=== PATIENT | female | born 1935 | race Caucasian/White ===

== ENCOUNTER 2016-10-23 13:19 | Inpatient (IN) | payer MEDICARE, OTHER ==
[~2016-10-23] VITALS: Ht 166.4 cm; Wt 108.2 kg
[~2016-10-23 13:19] MED LIST: ALBUTEROL0.63 MG/3 INH; ASPIRIN EC81 MG PO; CARDIZEM CD180 MG PO; COZAAR25 MG PO; ELIQUIS2.5 MG PO; FERROUS SULFAT325 MG PO; FLAGYL500 MG PO; HYDRALAZINE HC100 MG PO; K-DUR TAB 20 M20 MEQ PO; LASIX 40 MG TAB40 MG PO; LIPITOR TAB 2020 MG PO; LOPRESSOR50 MG PO; LOSARTAN-HCTZ1 EACH PO; PREVACID30 MG PO; PROVENTIL HFA 61 INH INH; ZOFRAN4 MG PO
[2016-10-23 16:06] LABS: HEMOGLOBIN 11.1 gm/dl (12.3-15.3); RED BLOOD COUNT 4.39 M/UL (4.00-5.10); WHITE BLOOD COUNT 4.9 K/UL (4.5-11.0)
[2016-10-24 04:41] LABS: HEMOGLOBIN 10.5 gm/dl (12.3-15.3); RED BLOOD COUNT 4.28 M/UL (4.00-5.10)
[2016-10-24 04:44] LABS: WHITE BLOOD COUNT 2.3 K/UL (4.5-11.0)
[2016-10-24] MEDS ORDERED: SINGULAIR10 MG PO (11:12)
[2016-10-25 04:14] LABS: HEMOGLOBIN 10.9 gm/dl (12.3-15.3); RED BLOOD COUNT 4.39 M/UL (4.00-5.10)
[2016-10-25 04:18] LABS: WHITE BLOOD COUNT 5.7 K/UL (4.5-11.0)
[2016-10-27 05:27] LABS: HEMOGLOBIN 11.1 gm/dl (12.3-15.3)
[2016-11-02] MEDS ORDERED: BUMEX 1MG TABLET1 MG PO (16:57)
[2016-11-02] MEDS ORDERED: LANOXIN TAB0.125 MG PO (16:58)
[2016-11-02] MEDS ORDERED: ALDACTONE50 MG PO (16:59)
[2016-11-02] MEDS ORDERED: PROVENTIL HFA 61 INH INH (17:00)
[2016-11-02] MEDS ORDERED: ATROVENT INH S2.5 ML INH (17:24)
== END 2016-11-02 17:44 | disposition home or self-care (01) | DRG 292 ==
LOC: ER1 13:19 → MED SURG 4 18:07 → ZEROF 18:07 → MED SURG 4 10-24 14:10
PROVIDERS: Emergency Medicine; Hospitalist; Internal Medicine; Physician Assistant; ADMIT Internal Medicine
DX: I11.0 Hypertensive heart disease with heart failure (principal); J44.1 Chronic obstructive pulmonary disease with (acute) exacerbation; J98.11 Atelectasis; E87.2 Acidosis; Z68.41 Body mass index [BMI] 40.0-44.9, adult; I50.23 Acute on chronic systolic (congestive) heart failure; I42.0 Dilated cardiomyopathy; I48.2 Chronic atrial fibrillation; R09.02 Hypoxemia; I44.7 Left bundle-branch block, unspecified; D50.9 Iron deficiency anemia, unspecified; I27.2 Other secondary pulmonary hypertension; I08.3 Combined rheumatic disorders of mitral, aortic and tricuspid valves; E78.5 Hyperlipidemia, unspecified; E05.90 Thyrotoxicosis, unspecified without thyrotoxic crisis or storm; E66.9 Obesity, unspecified; G47.33 Obstructive sleep apnea (adult) (pediatric); K21.9 Gastro-esophageal reflux disease without esophagitis; J06.9 Acute upper respiratory infection, unspecified; Z91.11 Patient's noncompliance with dietary regimen; Z91.19 Patient's noncompliance with other medical treatment and regimen; Z79.01 Long term (current) use of anticoagulants; Z79.82 Long term (current) use of aspirin; Z79.899 Other long term (current) drug therapy; Z82.49 Family history of ischemic heart disease and other diseases of the circulatory system
CPT/HCPCS: ECHO; 36415; 36600; 51702; 71010; 78472; 80048; 80053; 81001; 82550; 82553; 82803; 82962; 83605; 83735; 83874; 83880; 84439; 84443; 84484; 85014; 85018; 85025; 87040; 87086; 93005; 93306; 94640; 94664; 96365; 96366; 96375; 96376; 99285; A9560; J0456; J0696; J1940; J2930; J7030; J7050

== ENCOUNTER → 2017-01-02 | Outpatient (CLI) | payer MEDICARE, OTHER ==
[~2017-01-02] MED LIST changes: +ALDACTONE50 MG PO; +ATROVENT INH S2.5 ML INH; +BUMEX 1MG TABLET1 MG PO; +LANOXIN TAB0.125 MG PO; +SINGULAIR10 MG PO
== END ==
LOC: HEART 5 13:29
DX: I48.91 Unspecified atrial fibrillation (principal); I50.9 Heart failure, unspecified
CPT/HCPCS: 93306

== ENCOUNTER 2020-11-16 19:21 | Emergency (ER) | payer MEDICARE, OTHER ==
[~2020-11-16 19:21] MED LIST changes: +ANUSOL HC SUPP1 SUPP PR; +BUMETANIDE1 MG PO; +CLARITIN 10MG T10 MG PO; +CYANOCOBAL1000 MCG/1 INJ; +KEFLEX CAP 500500 MG PO; +LANOXIN125 MCG PO; +LANSOPRAZOLE30 MG PO; +OMNICEF 300 MG300 MG PO; +PREVACID 30 MG30 MG PO; +TOPROL XL100 MG PO
[2020-11-16 21:11] LABS: HEMOGLOBIN 13.2 gm/dl (12.3-15.3); RED BLOOD COUNT 4.66 M/UL (4.00-5.10); WHITE BLOOD COUNT 8.2 K/UL (4.5-11.0)
[2020-11-16] MEDS ORDERED: OMNICEF 300 MG300 MG PO (22:09)
== END 2020-11-16 22:48 | disposition home or self-care (01) ==
LOC: ER1 19:21
PROVIDERS: Physician Assistant
DX: K64.4 Residual hemorrhoidal skin tags (principal); N39.0 Urinary tract infection, site not specified; I11.0 Hypertensive heart disease with heart failure; I50.20 Unspecified systolic (congestive) heart failure; E11.9 Type 2 diabetes mellitus without complications; I48.91 Unspecified atrial fibrillation; Z90.49 Acquired absence of other specified parts of digestive tract; Z79.4 Long term (current) use of insulin; Z79.899 Other long term (current) drug therapy
CPT/HCPCS: 51701; 80048; 81001; 85025; 87077; 87086; 87186; 99283

== ENCOUNTER 2020-12-22 09:38 | Inpatient (IN) | payer MEDICARE, OTHER ==
[~2020-12-22] VITALS: Ht 157.5 cm; Wt 89.4 kg
[2020-12-22 12:08] LABS: RED BLOOD COUNT 4.51 M/UL (4.00-5.10); WHITE BLOOD COUNT 13.1 K/UL (4.5-11.0)
[2020-12-22] MEDS ORDERED: GLIMEPIRIDE1 MG PO (14:45)
[2020-12-22] MEDS ORDERED: ZAROXOLYN/DIULO5 MG PO (14:45)
[2020-12-22] MEDS ORDERED: TRADJENTA5 MG PO (14:45)
[2020-12-22] MEDS ORDERED: LANTUS100 UNIT/1 SQ (16:58)
[2020-12-22] MEDS ORDERED: PROTONIX40 MG PO (16:58)
[2020-12-22] MEDS ORDERED: HYDROXYZINE HCL25 MG PO (16:58)
[2020-12-22] MEDS ORDERED: TYLENOL EXTRA500 MG PO (16:59)
[2020-12-22] MEDS ORDERED: VITAMIN D250 MCG PO (16:59)
[2020-12-22] MEDS ORDERED: ARTIFICIAL TEAR15 M6 OP (16:59)
[2020-12-22] MEDS ORDERED: VITAMIN B-121000 MCG SC (19:28)
[2020-12-23 01:09] LABS: HEMOGLOBIN 11.3 gm/dl (12.3-15.3); RED BLOOD COUNT 3.97 M/UL (4.00-5.10); WHITE BLOOD COUNT 9.6 K/UL (4.5-11.0)
--- NOTE | 2020-12-24 04:34 | NUR ---
Patient's HR increased to 180's while ambulating to bathroom. MD notified. Med orders obtained to give, bedside commode placed by bed at this time. Will continue to monitor patient.
[2020-12-24 04:47] LABS: HEMOGLOBIN 10.9 gm/dl (12.3-15.3); RED BLOOD COUNT 3.81 M/UL (4.00-5.10); WHITE BLOOD COUNT 7.8 K/UL (4.5-11.0)
[2020-12-25 05:40] LABS: HEMOGLOBIN 11.5 gm/dl (12.3-15.3); RED BLOOD COUNT 4.04 M/UL (4.00-5.10)
[2020-12-25] MEDS ORDERED: OMNICEF 300 MG300 MG PO (09:33)
== END 2020-12-25 12:06 | disposition home or self-care (01) | DRG 683 ==
LOC: ER1 09:38 → CDU 13:50 → MED SURG 4 13:50
PROVIDERS: Emergency Medicine; Physician Assistant; ADMIT Family Medicine
DX: N17.9 Acute kidney failure, unspecified (principal); N30.00 Acute cystitis without hematuria; E87.2 Acidosis; E87.1 Hypo-osmolality and hyponatremia; I13.0 Hypertensive heart and chronic kidney disease with heart failure and stage 1 through stage 4 chronic kidney disease, or unspecified chronic kidney disease; I50.42 Chronic combined systolic (congestive) and diastolic (congestive) heart failure; I87.8 Other specified disorders of veins; K74.60 Unspecified cirrhosis of liver; E11.9 Type 2 diabetes mellitus without complications; E78.5 Hyperlipidemia, unspecified; K75.81 Nonalcoholic steatohepatitis (NASH); I48.0 Paroxysmal atrial fibrillation; Z20.822 Contact with and (suspected) exposure to COVID-19; J44.9 Chronic obstructive pulmonary disease, unspecified; I44.7 Left bundle-branch block, unspecified; I27.20 Pulmonary hypertension, unspecified; I07.1 Rheumatic tricuspid insufficiency; E66.9 Obesity, unspecified; K21.9 Gastro-esophageal reflux disease without esophagitis; E11.22 Type 2 diabetes mellitus with diabetic chronic kidney disease; N18.30 Chronic kidney disease, stage 3 unspecified; I89.0 Lymphedema, not elsewhere classified; R00.2 Palpitations; Z90.49 Acquired absence of other specified parts of digestive tract; Z79.4 Long term (current) use of insulin; Z85.828 Personal history of other malignant neoplasm of skin; Z83.3 Family history of diabetes mellitus; Z82.49 Family history of ischemic heart disease and other diseases of the circulatory system; Z79.01 Long term (current) use of anticoagulants; Z79.899 Other long term (current) drug therapy
CPT/HCPCS: ECHO; 36415; 70450; 71045; 80048; 80053; 80162; 81001; 82550; 82553; 82962; 83605; 83880; 84439; 84443; 84484; 85025; 87040; 87077; 87086; 87186; 93005; 93306; 94640; 94664; 94760; 97116-GP-CQ; 97162; 99285; J0360; J0696; Q0177; U0002

== ENCOUNTER 2021-04-08 04:37 | Inpatient (IN) | payer MEDICARE, OTHER ==
[~2021-04-08] VITALS: Ht 154.9 cm; Wt 92.5 kg
[~2021-04-08 04:37] MED LIST changes: +ARTIFICIAL TEAR15 M6 OP; +GLIMEPIRIDE1 MG PO; +HYDROXYZINE HCL25 MG PO; +LANTUS100 UNIT/1 SQ; +PROTONIX40 MG PO; +TRADJENTA5 MG PO; +TYLENOL EXTRA500 MG PO; +VITAMIN B-121000 MCG SC; +VITAMIN D250 MCG PO; +ZAROXOLYN/DIULO5 MG PO
[2021-04-08 05:04] LABS: HEMOGLOBIN 12.6 gm/dl (12.3-15.3); RED BLOOD COUNT 4.34 M/UL (4.00-5.10); WHITE BLOOD COUNT 7.2 K/UL (4.5-11.0)
[2021-04-08] MEDS ORDERED: HYDROCODON-ACE1 EAC4 PO (09:34)
[2021-04-08] MEDS ORDERED: GABAPENTIN300 MG PO (09:35)
[2021-04-08] MEDS ORDERED: METOPROLOL SUC100 MG PO (09:36)
[2021-04-09 04:09] LABS: HEMOGLOBIN 12.1 gm/dl (12.3-15.3); RED BLOOD COUNT 4.21 M/UL (4.00-5.10); WHITE BLOOD COUNT 7.2 K/UL (4.5-11.0)
[2021-04-09] MEDS ORDERED: LOPRESSOR 50 MG50 MG PO (09:38)
[2021-04-09] MEDS ORDERED: CEFUROXIME250 MG PO (09:38)
== END 2021-04-09 15:08 | disposition home or self-care (01) | DRG 308 ==
LOC: ER1 04:37 → CDU 08:10 → MED SURG 4 20:17
PROVIDERS: Physician Assistant; Physician Assistant Medical; ADMIT Internal Medicine
DX: I48.0 Paroxysmal atrial fibrillation (principal); I50.43 Acute on chronic combined systolic (congestive) and diastolic (congestive) heart failure; N30.00 Acute cystitis without hematuria; I13.0 Hypertensive heart and chronic kidney disease with heart failure and stage 1 through stage 4 chronic kidney disease, or unspecified chronic kidney disease; I48.20 Chronic atrial fibrillation, unspecified; I89.0 Lymphedema, not elsewhere classified; I87.8 Other specified disorders of veins; I27.20 Pulmonary hypertension, unspecified; E11.22 Type 2 diabetes mellitus with diabetic chronic kidney disease; N18.9 Chronic kidney disease, unspecified; Z20.822 Contact with and (suspected) exposure to COVID-19; J44.9 Chronic obstructive pulmonary disease, unspecified; E66.01 Morbid (severe) obesity due to excess calories; K43.9 Ventral hernia without obstruction or gangrene; K74.60 Unspecified cirrhosis of liver; I07.1 Rheumatic tricuspid insufficiency; K76.0 Fatty (change of) liver, not elsewhere classified; E04.9 Nontoxic goiter, unspecified; K21.9 Gastro-esophageal reflux disease without esophagitis; I44.7 Left bundle-branch block, unspecified; Z79.4 Long term (current) use of insulin; Z79.01 Long term (current) use of anticoagulants; Z90.49 Acquired absence of other specified parts of digestive tract; Z82.49 Family history of ischemic heart disease and other diseases of the circulatory system; Z88.8 Allergy status to other drugs, medicaments and biological substances; Z68.37 Body mass index [BMI] 37.0-37.9, adult
CPT/HCPCS: 36415; 71045; 80048; 80053; 80162; 81001; 82550; 82553; 82962; 83735; 83874; 83880; 84439; 84443; 84484; 85025; 85027; 85610; 85730; 87077; 87086; 87186; 93005; 96374; 99285; J0696; U0002

== ENCOUNTER 2021-12-08 14:39 | Inpatient (IN) | payer MEDICARE, OTHER ==
[~2021-12-08] VITALS: Ht 154.9 cm; Wt 99.6 kg
[~2021-12-08 14:39] MED LIST changes: +CEFUROXIME250 MG PO; +GABAPENTIN300 MG PO; +HYDROCODON-ACE1 EAC4 PO; +LOPRESSOR 50 MG50 MG PO; +METOPROLOL SUC100 MG PO; -VITAMIN B-121000 MCG SC
[2021-12-08 17:00] LABS: BUN/CREATININE RATIO 32 (0-10)
[2021-12-08 17:50] LABS: HEMOGLOBIN 11.1 gm/dl (12.3-15.3); RED BLOOD COUNT 3.88 M/UL (4.00-5.10); WHITE BLOOD COUNT 9.4 K/UL (4.5-11.0)
[2021-12-08] MEDS ORDERED: NALTREXONE HCL50 MG PO (18:41)
[2021-12-08] MEDS ORDERED: JANUVIA25 MG PO (18:42)
[2021-12-08] MEDS ORDERED: ZAROXOLYN/DIULO5 MG PO (18:42)
[2021-12-08] MEDS ORDERED: AMLODIPINE BESYL5 MG PO (18:42)
[2021-12-08] MEDS ORDERED: BUMETANIDE1 MG PO (18:43)
[2021-12-08] MEDS ORDERED: POTASSIUM CHLO20 ME1 PO (18:46)
[2021-12-08] MEDS ORDERED: LEVOTHYROXINE25 MCG PO (18:47)
[2021-12-08] MEDS ORDERED: SILVADENE20 GM TP (18:48)
[2021-12-08] MEDS ORDERED: LIDOCAINE1 EAC1 TP (18:48)
[2021-12-08] MEDS ORDERED: ARTHRITIS PAIN150 GM TP (18:49)
[2021-12-08] MEDS ORDERED: PROAIR HFA8.5 GM INH (18:50)
[2021-12-08] MEDS ORDERED: VITAMIN B-121000 MCG SC (19:28)
[2021-12-09 01:27] LABS: HEMOGLOBIN 10.1 gm/dl (12.3-15.3); RED BLOOD COUNT 3.53 M/UL (4.00-5.10); WHITE BLOOD COUNT 7.3 K/UL (4.5-11.0)
[2021-12-09 02:35] LABS: BUN/CREATININE RATIO 32 (0-10)
[2021-12-10 03:43] LABS: HEMOGLOBIN 9.6 gm/dl (12.3-15.3); RED BLOOD COUNT 3.37 M/UL (4.00-5.10); WHITE BLOOD COUNT 7.8 K/UL (4.5-11.0)
[2021-12-11 03:58] LABS: HEMOGLOBIN 9.8 gm/dl (12.3-15.3); RED BLOOD COUNT 3.45 M/UL (4.00-5.10); WHITE BLOOD COUNT 8.5 K/UL (4.5-11.0)
[2021-12-12 05:42] LABS: HEMOGLOBIN 9.4 gm/dl (12.3-15.3); RED BLOOD COUNT 3.3 M/UL (4.00-5.10); WHITE BLOOD COUNT 8.2 K/UL (4.5-11.0)
[2021-12-13 04:07] LABS: HEMOGLOBIN 9.6 gm/dl (12.3-15.3); RED BLOOD COUNT 3.41 M/UL (4.00-5.10); WHITE BLOOD COUNT 8.7 K/UL (4.5-11.0)
== END 2021-12-13 15:32 | disposition home health service (06) | DRG 291 ==
LOC: ER1 14:39 → CDU 17:46 → M/S 18:50
PROVIDERS: Preventive Medicine Occupational Medicine; ADMIT Internal Medicine
PROC: B24BZZZ Ultrasonography of Heart with Aorta (ICD-10-PCS; principal; 2021-12-09)
DX: I11.0 Hypertensive heart disease with heart failure (principal); I50.23 Acute on chronic systolic (congestive) heart failure; I48.20 Chronic atrial fibrillation, unspecified; I89.0 Lymphedema, not elsewhere classified; Z20.822 Contact with and (suspected) exposure to COVID-19; I25.10 Atherosclerotic heart disease of native coronary artery without angina pectoris; K74.60 Unspecified cirrhosis of liver; I27.20 Pulmonary hypertension, unspecified; E78.5 Hyperlipidemia, unspecified; I44.7 Left bundle-branch block, unspecified; I08.1 Rheumatic disorders of both mitral and tricuspid valves; K21.9 Gastro-esophageal reflux disease without esophagitis; G89.29 Other chronic pain; J44.9 Chronic obstructive pulmonary disease, unspecified; E11.9 Type 2 diabetes mellitus without complications; Z79.01 Long term (current) use of anticoagulants; Z87.891 Personal history of nicotine dependence; Z82.49 Family history of ischemic heart disease and other diseases of the circulatory system; Z88.8 Allergy status to other drugs, medicaments and biological substances
CPT/HCPCS: ECHO; 36415; 71045; 73030; 73070; 80048; 80053; 81001; 82550; 82553; 82962; 83036; 83605; 83690; 83735; 83880; 84100; 84439; 84443; 84484; 85025; 85610; 85652; 86140; 87086; 93005; 93306; 93970; 94640; 94664; 94760; 96374; 97162; 97166; 97530-GP-CQ; 99285; A6212; J1940; J3475; J7050; U0002